=== PATIENT | female | born 1990 | race Caucasian/White ===

== ENCOUNTER 2024-11-06 14:26 | Outpatient (CLI) | payer OTHER, SELFPAY | END 2024-11-06 14:27 | disposition home or self-care (01) | LOC: MRI 14:27 | PROVIDERS: PCP Family Medicine; Visit Provider Physician Assistant | DX: M25.562 Pain in left knee (principal); M94.262 Chondromalacia, left knee | CPT/HCPCS: 73721 ==

== ENCOUNTER 2025-01-20 18:47 | Outpatient (CLI) | payer MEDICAID, SELFPAY ==
--- NOTE | 2025-01-20 19:00 | MR_ITS ---
[address] [address] Phone:?[phone] Fax:?[phone] Referring Physician Information: Keisha Bucio [address] [facility] [address] Phone:?[phone] Fax:?[phone] Patient:Ronal Salgado D.O.B:?1990 Sex:?Female Phone:?[phone] [facility] MRN:?[id number] Exam Date:?01/20/2025 EXAM: MRI of the RIGHT KNEE, without contrast CLINICAL: Right knee pain. COMPARISONS: X-rays 01/06/2025. TECHNICAL: Multiplanar multisequence MRI of the right knee was obtained. SEDATION: None. CONTRAST: None. FINDINGS: Ligaments: ACL: Intact and unremarkable. PCL: Intact and unremarkable. MCL: Intact and unremarkable. LCL: Intact and unremarkable. Posterolateral corner: Popliteus, biceps femoris, iliotibial band, and the popliteofibular ligament appear intact. Posteromedial corner: Semimembranosus, pes anserine tendons and posterior oblique ligament appear intact. Extensor mechanism: Patellar tendon: Intact, without tendinopathy. Quadriceps tendon: Intact, without tendinopathy. Retinacula: Medial and lateral retinacula are intact. Fat pads: Unremarkable infrapatellar Hoffa's, quadriceps and prefemoral fat pads. Patellofemoral joint: Patella: No significant chondromalacia. Trochlea: No significant chondromalacia. Medial compartment: Medial meniscus: Apparent irregularity and increased signal involving the body segment on coronal series 7/8 images 18-20 is likely artifactual. Meniscus otherwise appears intact. No meniscal displacement. Medial cartilage: No significant chondromalacia. Lateral compartment: Lateral meniscus: No evidence of discrete meniscal tear or meniscal displacement. Lateral cartilage: No significant chondromalacia. Knee joint: Effusion: Physiologic right knee effusion. Intra-articular bodies:?No convincing bodies identified. Popliteal cyst: None. Bones: No suspicious bone marrow signal alteration or fracture line. IMPRESSION: 1. Apparent irregularity and increased signal involving the body segment medial meniscus is likely artifactual with tearing less likely. Menisci otherwise appear intact. 2. No additional internal derangement identified. JCZ Electronically signed on 01/25/2025 12:33:00 PM by Carlitos Acosta D.O.
== END 2025-01-20 18:48 | disposition home or self-care (01) ==
LOC: MRI 18:47
PROVIDERS: PCP Family Medicine; Visit Provider Physician Assistant
DX: M25.561 Pain in right knee (principal)
CPT/HCPCS: 73721

== ENCOUNTER 2025-02-10 18:47 | Outpatient (CLI) | payer MEDICAID, SELFPAY ==
--- NOTE | 2025-02-10 19:00 | MR_ITS ---
[address] [address] Phone:?[phone] Fax:?[phone] Referring Physician Information: Keisha Bucio [address] [facility] [address] Phone:?[phone] Fax:?[phone] Patient:?Debi Salgado D.O.B:?1990 Sex:?Female Phone:?[phone] [facility] MRN:?[id number] Exam Date:?02/10/2025 EXAM:? MRI OF THE RIGHT WRIST CLINICAL INFORMATION: The patient 34-year-old with right wrist pain. Evaluate TFCC. Evaluate distal radioulnar joint. PRIOR SURGERY: None reported. COMPARISON STUDIES: Comparison is made to prior radiographs dated 02/03/2025. TECHNICAL INFORMATION: Imaging was performed on a high-field, 1.5 Niya MR scanner. Axial, coronal, and sagittal proton-density and T2 imaging of the right wrist was produced in addition to coronal STIR imaging. FINDINGS: Osseous structures:? Fat-suppressed imaging of the distal radius and distal ulna shows no evidence for marrow edema or cortical injury. There is no evidence for fracture. No evidence for acute bony injury of the carpal structures can be seen.? There is no evidence for carpal fracture or abnormality in carpal alignment.? The proximal metacarpal region is within normal limits. Articulations:? A mild to moderate effusion of the distal radioulnar joint can be seen. No effusions of the radiocarpal joint or midcarpal space are noted. No erosive changes are seen to suggest inflammatory arthritis. The CMC joints are within normal limits. Triangular fibrocartilage:? The TFCC is intact. There is no evidence of partial or full-thickness tearing. Ligaments: ?The scapholunate and lunotriquetral ligaments are intact.? The remainder of the volar and dorsal ligaments appear intact. Musculotendinous structures:? The flexor tendons are intact and normal in appearance.? The extensor tendons are intact and normal in appearance. Neurovascular structures:? The median nerve appears normal in signal intensity and morphology within the carpal tunnel. The ulnar neurovascular structures appear unremarkable. Fluid collections:? No abnormal fluid collections within the soft tissues about the wrist are seen. No evidence for ganglion cyst formation is identified. CONCLUSION: ? 1. Mild to moderate distal radioulnar joint effusion. No other articular abnormalities about the wrist are seen. 2. No acute bony abnormalities are present. 3. The ligamentous structures of the wrist appear intact. No definite injuries to the TFCC can be seen. 4. The flexor and extensor tendons of the wrist are within normal limits. 5. No neurovascular abnormalities are present. AEC Electronically signed on 02/11/2025 8:45:00 AM by Jayjay Luna M.D.
== END 2025-02-10 18:48 | disposition home or self-care (01) ==
LOC: MRI 18:48
PROVIDERS: PCP Family Medicine; Visit Provider Physician Assistant
DX: M25.531 Pain in right wrist (principal); M25.431 Effusion, right wrist; S69.91XA Unspecified injury of right wrist, hand and finger(s), initial encounter; S63.599A Other specified sprain of unspecified wrist, initial encounter
CPT/HCPCS: 73221